=== PATIENT | female | born 1960 | race Caucasian/White ===

== ENCOUNTER → 2020-01-10 | Outpatient (CLI) | payer OTHER ==
--- NOTE | 2020-01-11 19:42 | CT ---
EXAMINATION TYPE: CT abdomen pelvis w con DATE OF EXAM: 01/10/2020 COMPARISON: None HISTORY: Diarrhea with generalized pain. CT DLP: 810.7 mGycm Automated exposure control for dose reduction was used. TECHNIQUE: Helical acquisition of images was performed from the lung bases through the pelvis. CONTRAST: Performed with Oral Contrast and with IV Contrast, patient injected with 100 mL of Isovue 300. FINDINGS: LUNG BASES: Minimal bibasilar atelectasis. Calcified coronary artery disease. LIVER: Normal. BILIARY SYSTEM: Normal. PANCREAS: Normal. SPLEEN: Normal. ADRENALS: Normal. KIDNEYS: There are multiple hypodense lesions of the bilateral kidneys, some of which are cystic, and some of which appear solid. For example a 1.0 cm mass of the right renal lower pole demonstrates Sky nsfield units of 62 (3:45), and a 1.4 cm mass of the right interpolar kidney demonstrates Hounsfield units of 72 (3:37) on portal venous phase imaging. 2 hypodense lesions of the right renal upper pole likely demonstrate calcifications and not enhancing nodules (3:31, 5:29). BOWEL: No evidence of bowel obstruction or thickening. There is colonic diverticulosis. No acute div erticulitis. PERITONEUM: No free air is visualized. No free fluid. ADENOPATHY: No lymphadenopathy. PELVIS: Calcifications of the uterus may represent fibroid changes. No adnexal mass. Normal urinary b ladder. VASCULATURE: No abdominal aortic aneurysm. MUSCULOSKELETAL: Degenerative changes of the spine. There is posterior calcified disc osteophyte com plex T8-T9 with mass effect and narrowing of the thoracic spinal canal (8:67, 3:9). Multilevel degene rative disc disease and facet arthropathy contribute to varying degrees of canal stenosis, with moder ate to severe canal stenosis at L1-L2 and L4-L5, and severe canal stenosis at L2-L3 and L3-L4. There is grade 2 anterolisthesis of L5 on S1 with bilateral L5 pars defects. IMPRESSION: 1. No acute findings to explain patient's diarrhea and abdominal pain. 2. Multiple cystic, indeterminate, and solid-appearing renal masses. There are 2 solid-appearing tres l masses of the right kidney. Findings may represent malignancy. Follow-up with MRI renal mass protoc ol is recommended. 3. Severe degenerative changes of the spine with narrowing of the thoracic canal at T8-T9, and multil evel severe canal stenosis of the lumbar spine as described above.
== END | disposition home or self-care (01) ==
LOC: RADCTMAIN 10:24
PROVIDERS: ATTEND Nurse Practitioner Family
DX: R19.7 Diarrhea, unspecified (principal)
CPT/HCPCS: 74177; Q9967

== ENCOUNTER → 2020-02-07 | Outpatient (CLI) | payer OTHER ==
--- NOTE | 2020-02-08 07:03 | MR ---
EXAMINATION TYPE: MR kidney wo/w con DATE OF EXAM: 02/07/2020 COMPARISON: CT abdomen and pelvis January 10, 2020 HISTORY: Abnormal findings on CT CONTRAST: Standard multiplanar, multisequence MRI departmental protocol utilizing 7.5 mL intravenous Gadavist g adolinium contrast. Imaging is performed of the abdomen focusing on both kidneys. FINDINGS: Kidneys: Corresponding to recent CT there are small scattered lesions throughout both kidneys. Left k idney shows thin-walled cysts with small T1 hypointense and T2 hyperintense lesions without postcontr ast enhancement. Largest lesion measures up to 1.4 cm long axis posteriorly lower pole level left kid sarah. Right kidney shows similar scattered lesions of thin-walled cyst. Corresponding to area of kristian rn on CT midpole level there is T1 hyperintense and T2 isointense lesion without definitive postcontr ast enhancement measuring 1.3 cm felt to reflect proteinaceous or debris filled cyst. This is noted i mage 39 series 601 for reference. Other: Lung bases remain clear. The liver, gallbladder, spleen, and both adrenal glands are within no rmal limits. Some scattered colonic diverticula. No suspicious bowel dilatation. No abdominal ascites . No abdominal adenopathy. Visualized osseous structures are intact. IMPRESSION: Small simple-appearing thin-walled cysts bilaterally. A Bosniak type II or proteinaceous 1.3 cm cyst midpole level right kidney corresponds to lesion of concern on recent CT.
== END | disposition home or self-care (01) ==
LOC: RADMRIMAIN 08:07
PROVIDERS: ATTEND Nurse Practitioner Family
DX: N28.1 Cyst of kidney, acquired (principal)
CPT/HCPCS: 74183; A9585

== ENCOUNTER 2020-12-29 11:23 | Day surgery (SDC) | payer OTHER ==
[2020-12-13 10:33] VITALS: BMI 27.1
[~2020-12-29 11:23] MED LIST: DEXAMETHASONE SOD PHOSPHATE 4 MG/ML 1 ML VIAL IV ONE; HYDROmorphone 0.5 MG/0.5 ML SYRINGE IVP PRN; LACTATED RINGERS 1,000 ML IV SCH; LIDOCAINE 1% (10MG/ML) FOR IV START INTRADERMA PRN; MIDAZOLAM 2 MG/2 ML VIAL IV PRN; ONDANSETRON 4 MG/2 ML VIAL IVP ONE; Pre Op ABX Message 1 EACH MISC MISCELLANE ONE
[2020-12-29 11:52] VITALS: TEMP 97.3
[2020-12-29] MEDS ORDERED: MIDAZOLAM 2 MG/2 ML VIAL ONE (12:35)
[2020-12-29] MEDS ORDERED: PROPOFOL 10 MG/ML 20 ML VIAL IV ONE (12:35)
[2020-12-29] MEDS ORDERED: fentaNYL (PF) 50 MCG/ML 2 ML AMP ONE (12:35)
[2020-12-29] MEDS ORDERED: LIDOCAINE 2% INJ 20 MG/ML SQ ONE (12:37)
--- NOTE | 2020-12-29 12:58 | P.OP ---
Date of Procedure: 12/29/20 Procedure(s) Performed: PREOPERATIVE DIAGNOSES: 1. Right Hand carpal tunnel syndrome POSTOPERATIVE DIAGNOSES: 1. Right Hand carpal tunnel syndrome PROCEDURES PERFORMED: 1. Right Hand carpal tunnel release ANESTHESIA: Local with IV sedation LEAD CASE MANAGER: None COMPLICATIONS: None ESTIMATED BLOOD LOSS: Less than 1 mL DISPOSITION: To post-anesthesia care unit INDICATIONS: Dora is a 60-year-old female who has had EMG/nerve conduction study confirmed carpal tunnel syndrome with unrelenting symptoms. CTS-6 criteria are indicative of carpal tunnel syndrome. She desires to have a carpal tunnel release as discussed in office. I discussed the steps of the surgery as well as potential risks and complications as being inclusive of, but not limited to: Bleeding, infection, scarring, discomfort, blood vessel and/or nerve damage, need for further surgery, stiffness, tendon injury, persistence or recurrence of symptoms and other risks. The patient is aware of these risks and wishes to proceed with surgery. The consent form has been signed. PROCEDURE: After appropriate consent was obtained, the patient was taken to the operating room placed in the supine position. Anesthesia was initiated, and after confirmation of adequate anesthesia, the patient was carefully positioned. Care was taken to make sure that all pressure points were adequately padded. Timeout was called, confirming patient identity, side, procedure, and no antibiotics were administered. Limb was exsanguinated with an Esmarch bandage and the tourniquet was inflated to 250 mmHg. Total tourniquet time for the case was approximately 9 minutes. Incision was created in line with the radial border of the fourth ray at the base of the palm. Incision was carried down through skin and then lightly spread down to palmar fascia. Retractors were placed. Excellent visualization of the palmar fascia was accomplished and the palmar fascia was incised to reveal the underlying transverse carpal ligament. The ligament was incised sharply using a knife and released in 1 mm increments both proximally and distally to the extent of the wound. Further fascial releases were performed in both directions using gentle push technique with curved small Metzenbaum scissors. Full release was confirmed with visual inspection and instrument palpation. The underlying structures of the carpal tunnel were noted to be fairly normal without evidence of significant tenosynovitis. Thorough irrigation was performed using normal saline. Tourniquet was deflated and combination of bipolar electrocautery and pressure was used for hemostasis. Closure was performed using vertical mattress 4-0 nylon suture. Sterile dressing was applied and further pressure was held over the wound for 3 minutes for additional hemostasis. Vascular status remained good with less than 2 second capillary refill. Patient tolerated the procedure well and taken to recovery room in stable condition. Counts were correct.
[2020-12-29 13:20] VITALS: RESP 16
[2020-12-29 13:40] VITALS: BP 113/60; PULSE 68
== END 2020-12-29 13:55 | disposition home or self-care (01) ==
LOC: OR 11:23
PROVIDERS: ATTEND Orthopaedic Surgery
DX: G56.01 Carpal tunnel syndrome, right upper limb (principal)
CPT/HCPCS: 64721; J2001; J2250; J1100; J2405; J3010; J2704

== ENCOUNTER 2021-03-02 13:21 | Day surgery (SDC) | payer OTHER ==
[2021-02-28 11:58] VITALS: BMI 26.6
[~2021-03-02 13:21] MED LIST changes: -LIDOCAINE 1% (10MG/ML) FOR IV START INTRADERMA PRN; -MIDAZOLAM 2 MG/2 ML VIAL IV PRN
[2021-03-02 14:26] VITALS: RESP 16; TEMP 97.9
[2021-03-02] MEDS ORDERED: LIDOCAINE HCL/PF 20 MG/ML 10 ML AMP SQ ONE ×2 (15:17→15:40)
[2021-03-02] MEDS ORDERED: PROPOFOL 10 MG/ML 20 ML VIAL IV ONE (15:26)
[2021-03-02] MEDS ORDERED: MIDAZOLAM 2 MG/2 ML VIAL ONE (15:26)
[2021-03-02] MEDS ORDERED: KETAMINE 10 MG/ML 20 ML VIAL ONE (15:26)
[2021-03-02] MEDS ORDERED: fentaNYL (PF) 50 MCG/ML 2 ML AMP ONE (15:26)
--- NOTE | 2021-03-02 15:34 | P.OP ---
Date of Procedure: 03/02/21 Procedure(s) Performed: PREOPERATIVE DIAGNOSES: 1. Left wrist carpal tunnel syndrome POSTOPERATIVE DIAGNOSES: 1. Left wrist carpal tunnel syndrome PROCEDURES PERFORMED: 1. Left wrist carpal tunnel release ANESTHESIA: Local with IV sedation PHARMACY ASSOCIATE: None COMPLICATIONS: None ESTIMATED BLOOD LOSS: Less than 1 mL DISPOSITION: To post-anesthesia care unit INDICATIONS: Dora is a 60-year-old female who has had EMG/nerve conduction study confirmed carpal tunnel syndrome with unrelenting symptoms. She has recently undergone right carpal tunnel release a few weeks ago with excellent results. She desires to have a carpal tunnel release as discussed in office. I discussed the steps of the surgery as well as potential risks and complications as being inclusive of, but not limited to: Bleeding, infection, scarring, discomfort, blood vessel and/or nerve damage, need for further surgery, stiffness, tendon injury, persistence or recurrence of symptoms and other risks. The patient is aware of these risks and wishes to proceed with surgery. The consent form has been signed. PROCEDURE: After appropriate consent was obtained, the patient was taken to the operating room placed in the supine position. Anesthesia was initiated, and after confirmation of adequate anesthesia, the patient was carefully positioned. Care was taken to make sure that all pressure points were adequately padded. Timeout was called, confirming patient identity, side, procedure, and no antibio tics were administered. Limb was exsanguinated with an Esmarch bandage and the tourniquet was inflated to 250 mmHg. Total tourniquet time for the case was approximately 9 minutes. Incision was created in line with the radial border of the fourth ray at the base of the palm. Incision was carried down through skin and then lightly spread down to palmar fascia. Retractors were placed. Excellent visualization of the palmar fascia was accomplished and the palmar fascia was incised to reveal the underlying transverse carpal ligament. The ligament was incised sharply using a knife and released in 1 mm increments both proximally and distally to the extent of the wound. Further fascial releases were performed in both directions using gentle push technique with curved small Metzenbaum scisso rs. Full release was confirmed with visual inspection and instrument palpation. The underlying structures of the carpal tunnel were noted to be fairly normal without evidence of significant tenosynovitis. Thorough irrigation was performed using normal saline. Tourniquet was deflated and combination of bipolar electrocautery and pressure was used for hemostasis. Closure was performed using vertical mattress 4-0 nylon suture. Sterile dressing was applied and further pressure was held over the wound for 3 minutes for additional hemostasis. Vascular status remained good with less than 2 se cond capillary refill. Patient tolerated the procedure well and taken to recovery room in stable condition. Counts were correct.
[2021-03-02 16:36] VITALS: BP 138/79; PULSE 74
== END 2021-03-02 17:29 | disposition home or self-care (01) ==
LOC: OR 13:21
PROVIDERS: ATTEND Orthopaedic Surgery
DX: G56.02 Carpal tunnel syndrome, left upper limb (principal); I10 Essential (primary) hypertension; Z79.899 Other long term (current) drug therapy
CPT/HCPCS: 64721; J2250; J1100; J2405; J3010; J2001; J2704

== ENCOUNTER → 2022-08-09 | Outpatient (CLI) | payer OTHER ==
--- NOTE | 2022-08-09 12:47 | BD ---
EXAMINATION TYPE: Axial Bone Density DATE OF EXAM: 08/09/2022 CLINICAL HISTORY: 61 years old Female. ICD-10 CODE: N95.1 POST MENOPAUSAL SYMPTOMS M89.9 DISORDER OF BONE Height: 63.75 Weight: 170.5 FRAX RISK QUESTIONS: Alcohol (3 or more units per day): no Family History (Parent hip fracture): no Glucocorticoids (More than 3mos): no History of Fracture in Adulthood: elbow Secondary Osteoporosis: 1. Type 1 Diabetes: no 2. Hyperthyroidism: no 3. Menopause before 45: no 4. Malnutrition: no 5. Chronic liver disease: no Rheumatoid Arthritis: no Current Tobacco Use: no RISK FACTORS HISTORY OF: Hip Fracture (Right/Left): no Spine Fracture: no History of Wrist Fracture: no Surgery to Spine/Hip(right/left)/Wrist (right/left): no Family History of Osteoporosis: no Active: no Diet low in dairy products/other sources of calcium: yes Postmenopausal woman: yes Take estrogen and/or progesterone medications: no Lost more than 2 inches in height since high school: no Frequent falls: no Poor Health: no Hyperparathyroidism: no Adrenal Insufficiency: no MEDICATIONS: Prednisone or other steroids: no Thyroid Medications: no Osteoporosis Medications: no Additional Medications: magnesium, BP Meds Additional History: EXAM MEASUREMENTS: Bone mineral densitometry was performed using the mPura System. Bone mineral density as measured about the Lumbar spine is: ----- L1-L4(G/cm2): 1.849 T Score Values are as follows: ----- L1: 4.5 ----- L2: 4.2 ----- L3: 7.0 ----- L4: 6.2 ----- L1-L4: 5.6 Z Score Values are as follows: ----- L1: 5.2 ----- L2: 5.0 ----- L3: 7.7 ----- L4: 6.9 ----- L1-L4: 6.3 Baseline Study Bone mineral density about the R hip (g/cm2): 1.000 Bone mineral density about the L hip (g/cm2): 1.255 T Score values are as follows: -----R Neck: 1.4 -----L Neck: 0.9 -----R Total: 1.7 -----L Total: 2.0 Z Score values are as follows: -----R Neck: 2.3 -----L Neck: 1.9 -----R Total: 2.3 -----L Total: 2.6 Baseline Study FRAX%s: The graph provided illustrates a 9.1 % chance for a major osteoporotic fx and a 0.1% chance f or the hips probability for fx in 10 years time. IMPRESSION: Normal (Values between +1 and -1 indicate normal bone mass). Consider repeating this study in 5 year s or sooner if there is some new clinical indication. NOTE: T-SCORE=SD OF THE YOUNG ADULT MEAN.
--- NOTE | 2022-08-12 17:03 | MM ---
Reason for Exam: Screening (asymptomatic). Patient History: Menarche at age 17. First Full-Term at age 29. Postmenopausal. Risk Values: Camille 5 year model risk: 1.4%. NCI Lifetime model risk: 7.6%. Prior Study Comparison: No prior studies available for comparison. Tissue Density: There are scattered fibroglandular densities. Findings: Analyzed By CAD. Pattern appears symmetrical and stable. Multiple scattered benign-appearing calcifications are present bilaterally. Larger coarse calcifications are within the left breast. There is a slightly irregular oval density in the posterior mid medial left breast. Additional workup is recommended. Overall Assessment: Incomplete: need additional imaging evaluation, BI-RAD 0 Management: Diagnostic Breast Ultrasound of the left breast. Diagnostic Mammogram of the left breast. A negative mammogram report should not preclude additional follow up of suspicious palpable abnormalities. Patient should continue monthly self breast exam. A clinical breast exam by your physician is recommended on an annual basis and results should be correlated with mammographic findings. Electronically signed and approved by: Srinivas Husain D.O. Radiologis
== END | disposition home or self-care (01) ==
LOC: RADMAMWWP 09:53
PROVIDERS: ATTEND Family Medicine
DX: Z12.31 Encounter for screening mammogram for malignant neoplasm of breast (principal); N95.1 Menopausal and female climacteric states; M89.9 Disorder of bone, unspecified
CPT/HCPCS: 77067; 77080